=== PATIENT | female | born 1990 | race Caucasian/White ===

== ENCOUNTER 2021-04-12 21:21 | Emergency (ER) | payer BC ==
[~2021-04-12] VITALS: Ht 157.5 cm; Wt 50.0 kg
[2021-04-12 21:30] VITALS: TEMP 97.2
[2021-04-12 22:14] LABS: HEMATOCRIT 41.1 % (37.0-47.0); HEMOGLOBIN 14.3 g/dl (12.5-16.0); MEAN CELL VOLUME 84 fl (80.0-100.0); MEAN CORPUSCULAR HEMOGLOBIN 29 pg (27.0-31.0); MEAN CORPUSCULAR HGB CONC 35 g/dl (33.0-37.0); MEAN PLATELET VOLUME 8.9 fl (7.4-10.4); PLATELET COUNT 415 K/mm3 (130-400); RED BLOOD COUNT 4.88 M/mm3 (4.10-5.30); REDCELL DISTRIBUTION WIDTH-CV 12.1 % (11.5-14.5)
[2021-04-12 22:32] LABS: BILIRUBIN,TOTAL 0.5 mg/dL (0.2-1.2); CREATININE, serum 0.62 mg/dL (0.57-1.11); POTASSIUM 4.1 mmol/L (3.5-4.5); TOTAL PROTEIN 8.3 gm/dL (6.2-8.1)
[2021-04-12 22:39] LABS: BAND 1 % (0-10); LYMPHOCYTE 3 % (20.0-51.0); NEUTROPHILS 93 % (42.0-75.2); PLATELET ESTIMATE NORMAL (NORMAL)
[2021-04-12 23:03] LABS: MUCOUS Present /lpf; PH 5 (5-8); SQUAMOUS EPITHELIAL None Seen /hpf; URINE APPEARANCE Hazy; URINE BACTERIA None Seen /hpf; URINE BILIRUBIN Negative (NEGATIVE); URINE BLOOD Negative (NEGATIVE); URINE COLOR Yellow; URINE GLUCOSE Negative (NEGATIVE); URINE KETONE 2+ (NEGATIVE); URINE LEUKOCYTE ESTERASE Negative (NEGATIVE); URINE NITRATE Negative (NEGATIVE); URINE PROTEIN(semi-quant) 1+ (NEGATIVE); URINE RBC 0-2 /hpf; URINE WBC 0-2 /hpf
[2021-04-12 23:29] LABS: COLLECTION METHOD CLEAN CATCH
[2021-04-13 00:14] VITALS: BP 122/70; PULSE 64
== END 2021-04-13 00:14 | disposition home or self-care (01) ==
LOC: COL.ER 21:21
PROVIDERS: Student in an Organized Health Care Education/Training Program
DX: O20.8 Other hemorrhage in early pregnancy (principal); Z3A.08 8 weeks gestation of pregnancy
CPT/HCPCS: J7030

== ENCOUNTER 2021-10-18 11:56 | Outpatient (CLI) | payer BC ==
[~2021-10-18] VITALS: Ht 157.5 cm; Wt 68.2 kg
[2021-10-18] MEDS ORDERED: ZOFRAN 4MG T4 MG/TAB (12:24)
[2021-10-18] MEDS ORDERED: ASPIRIN 81M81 MG/TA2 PO (12:24)
[2021-10-18 12:30] VITALS: BP 121/78; PULSE 95; TEMP 98.2
[2021-10-18 12:34] LABS: BASO % 0.4 % (0.0-2.0); EOS # 0.1 K/mm3 (0.0-0.7); EOS % 0.5 % (0.0-4.0); GRAN # 8.4 K/mm3 (1.4-6.5); GRAN % 81.1 % (42.2-75.2); HEMOGLOBIN 12.5 g/dl (12.5-16.0); LYMPH # 1.3 K/mm3 (1.2-3.4); LYMPH % 12.6 % (20.0-51.0); MEAN CELL VOLUME 89 fl (80.0-100.0); MEAN CORPUSCULAR HEMOGLOBIN 31 pg (27-31); MEAN CORPUSCULAR HGB CONC 35 g/dl (33.0-37.0); MONO # 0.5 K/mm3 (0.1-0.6); MONO % 4.8 % (1.7-9.3); PLATELET COUNT 249 K/mm3 (130-400); RED BLOOD COUNT 3.98 M/mm3 (4.10-5.30); REDCELL DISTRIBUTION WIDTH-CV 12.1 % (11.5-14.5)
[2021-10-18 12:36] LABS: HEMATOCRIT 35.6 % (37.0-47.0)
[2021-10-18 12:39] LABS: MUCOUS Present (NOT PRESENT); PH 6 (5-8); URINE APPEARANCE Hazy (CLEAR/HAZY); URINE BACTERIA None Seen /hpf (NONE SEEN); URINE BILIRUBIN Negative (NEGATIVE); URINE BLOOD Negative (NEGATIVE); URINE COLOR Yellow (YELLOW); URINE GLUCOSE Negative (NEGATIVE); URINE KETONE Negative (NEGATIVE); URINE LEUKOCYTE ESTERASE Negative (NEGATIVE); URINE NITRATE Negative (NEGATIVE); URINE PROTEIN(semi-quant) Negative (NEGATIVE); URINE RBC 0-2 /hpf (0-2); URINE UROBILINOGEN Negative (NEGATIVE)
[2021-10-18 12:52] LABS: ALBUMIN 2.8 gm/dL (3.5-5.0); BILIRUBIN,TOTAL 0.3 mg/dL (0.2-1.2); CALCIUM 8.2 mg/dL (8.4-10.2); CREATININE, serum 0.59 mg/dL (0.57-1.11); TOTAL PROTEIN 6.3 gm/dL (6.2-8.1)
[2021-10-18 12:57] LABS: COLLECTION METHOD CLEAN CATCH
[2021-10-18 13:00] VITALS: BP 119/72; PULSE 95
[2021-10-18 13:12] VITALS: BP 114/73; PULSE 89
== END 2021-10-18 13:25 | disposition home or self-care (01) ==
LOC: LDRO 11:56 → LDR 12:11 → LDRO 13:25
PROVIDERS: Obstetrics & Gynecology
DX: O16.3 Unspecified maternal hypertension, third trimester (principal); Z3A.34 34 weeks gestation of pregnancy

== ENCOUNTER 2021-11-14 21:03 | Outpatient (CLI) | payer BC ==
[~2021-11-14] VITALS: Ht 160 cm; Wt 71.8 kg
[~2021-11-14 21:03] MED LIST: ASPIRIN 81M81 MG/TA2 PO; ZOFRAN 4MG T4 MG/TAB
--- NOTE | 2021-11-14 21:05 | NUR ---
G2L1 at 38 weeks and 5 days arrives to unit ambulatory with complaint of contractions every 5-10 minutes and small leakage of fluid. Pt reports feeling small amounts of fluid leaking since this afternoon. Pt reports good movement and denies vaginal bleeding. Pt with a history of a 33 week vaginal delivery due to pre eclampsia. Pt denies headaches, blurry vision, or RUQ pain. Clean gown on. Pt oriented to room, bed in low and locked position, call light within reach. US and toco explained and applied. Vitals obtained. Admission assessment started. Amnitrace to perineum position. SVE 1-2/75/-3, bag of water palpated and no fluid out on exam glove. Reviewed plan of care to ambulate with peripad in place to monitor leakage of fluid.
[2021-11-14 21:30] VITALS: BP 134/83; PULSE 85
--- NOTE | 2021-11-14 21:48 | NUR ---
Category 1 FHR tracing obtained. Monitors off, pt up to ambulate.
--- NOTE | 2021-11-14 22:30 | NUR ---
Pt back in bed. Peripad with scant amount of fluid. Pt reports contractions are infrequent and not as strong. Also reports very minimal amount of leaking. ROM plus obtained at this time. SVE unchanged /-3.
--- NOTE | 2021-11-14 23:05 | NUR ---
ROM plus negative. Reviewed discharge plan with patient and spouse, verbalized understanding. Pt seen ambulating off unit with spouse.
== END 2021-11-14 23:25 | disposition home or self-care (01) ==
LOC: LDRO 21:03 → LDR 21:10 → LDRO 23:25
DX: O62.9 Abnormality of forces of labor, unspecified (principal); Z3A.38 38 weeks gestation of pregnancy
CPT/HCPCS: OP

== ENCOUNTER 2021-11-15 03:55 | Inpatient (IN) | payer BC ==
[2021-11-15] VITALS (26 sets, daily range): BP systolic 100–138; BP diastolic 51–76; PULSE 76–110; TEMP 98.2–99.1
[~2021-11-15] VITALS: Ht 160 cm; Wt 69.5 kg
--- NOTE | 2021-11-15 04:05 | NUR ---
G2L1 at 38 weeks and 6 days arrives to unit by wheelchair with complaint of contractions every 5 minutes. Pt was discharged earlier in the shift as a labor check and was dilated 1-2 on discharge. Pt denies any leaking of fluid or vaginal bleeding. Pt denies headaches, blurry vision, or RUQ pain. Pt with a history pre-eclampsia and a 33 week vaginal delivery. Clean gown on. Pt oriented to room, call light within reach, bed in low and locked position. US and toco explained and applied. Vitals obtained. Admission assessment started. SVE 5-6/90/-2, membranes intact.
--- NOTE | 2021-11-15 04:50 | NUR ---
18G IV started in right forearm. Admission labs obtained off IV start. Lactated ringers infusing to gravity. Pen G started per protocol. Consents reviewed and signed with patient and spouse, all questions answered.
[2021-11-15 05:11] LABS: BASO # 0.1 K/mm3 (0.0-0.2); BASO % 0.4 % (0.0-2.0); EOS % 0.2 % (0.0-4.0); GRAN # 10.8 K/mm3 (1.4-6.5); GRAN % 83.3 % (42.2-75.2); HEMOGLOBIN 12.3 g/dl (12.5-16.0); LYMPH # 1.4 K/mm3 (1.2-3.4); LYMPH % 10.9 % (20.0-51.0); MEAN CELL VOLUME 90 fl (80.0-100.0); MEAN CORPUSCULAR HEMOGLOBIN 32 pg (27-31); MEAN CORPUSCULAR HGB CONC 35 g/dl (33.0-37.0); MEAN PLATELET VOLUME 10.1 fl (7.4-10.4); MONO # 0.6 K/mm3 (0.1-0.6); MONO % 4.7 % (1.7-9.3); PLATELET COUNT 254 K/mm3 (130-400); RED BLOOD COUNT 3.91 M/mm3 (4.10-5.30); REDCELL DISTRIBUTION WIDTH-CV 12.1 % (11.5-14.5)
--- NOTE | 2021-11-15 05:16 | NUR ---
0500 - ANASTASIIA, LEATHA at bedside. Epidural procedure, risks, and benefits explained to patient, verbalized understanding. 0505 - Pt positioned to sitting on edge of bed. 0510 - US tracing maternal HR confirmed with pulse ox. 0516 - Test dose by Anastasiia [employer]. Pt denies adverse reactions. 0523 - Pt positioned to left lateral for comfort. Safety precautions reviewed with patient and spouse. Bed in low and locked position, call light within reach. See Anesthesia record.
[2021-11-15 05:20] LABS: HEMATOCRIT 35.3 % (37.0-47.0)
--- NOTE | 2021-11-15 06:15 | NUR ---
0615-Assumed care of patient at this time. Paitent comfortable with epidural. Updated patient on plan of care, all questions answered. 0635-Go to DD, clear dark yellow urine return. SVE -/-2. Alysia care provided. Repositioned WR with peanut ball.
--- NOTE | 2021-11-15 07:00 | NUR ---
0700-Variable FHR decel. Patient calls out with complaint of possible SROM. SVE 7-8/-1 with clear fluid noted. Alysia care provided. Repositioned WL with PB.
--- NOTE | 2021-11-15 07:50 | NUR ---
0750-Nick reports increased pressure and emesis 250ml clear fluid at this time. SVE /0. FHR decel slow to return to baseline. Dr. Costello notified of SVE and reviewed strip see MD notification.
--- NOTE | 2021-11-15 08:48 | NUR ---
0848-Dr. Costello notified of patients deep variable decel and recent prolonged decel, see MD notification. Updated on SVE 9-/0. MD in route to unit now. 0855-Dr. Costello to patient room. SVE by MD complete and ready to start pushing per MD. 0904-Paitent starts pushing with this RN at bedside. Moves vertex well. 09-Dr. Costello back to patient room. Patient set up for delivery and begins pushing with MD at bedside. Continues to move vertex well. 09-Spontaneous delivery of head. Tight nuchal clamped x 2 and cut by Father of . Patient instructed to keep pushing and spontaneously delivers body. Infant immediately taken to mothers abdomen and care assumed by ABRAHAN López. Apgars 8/9/9. 0929-Spontaneous delivery of intact placenta by MD. Fundal massage firm. [place] WNL. EBL 200ml. Pitocin bolus per MD order and protocol. 2nd Degree MLL repaired by MD. Alysia care provided. Updated on plan of care and safety.
[2021-11-16] VITALS: BP 115/77; PULSE 86; TEMP 98.1
[2021-11-16] MEDS ORDERED: MOTRIN 800800 MG/TAB PO (08:56)
[2021-11-16 09:10] VITALS: BP 120/75; PULSE 104; TEMP 98.4
--- NOTE | 2021-11-16 17:00 | NUR ---
1700-Reviewed discharge instructions with patient. Instructed on on need to schedule 6 week visit. 1730-Ambulatory off unit.
== END 2021-11-16 17:30 | disposition home or self-care (01) | DRG 807 ==
LOC: LDRO 03:55 → LDR 04:22 → OB 13:00
PROVIDERS: Obstetrics & Gynecology; ADMIT Obstetrics & Gynecology
PROC: 10E0XZZ Delivery of Products of Conception, External Approach (ICD-10-PCS; principal; 2021-11-15)
PROC: 0KQM0ZZ Repair Perineum Muscle, Open Approach (ICD-10-PCS; 2021-11-15)
DX: O99.824 Streptococcus B carrier state complicating childbirth (principal); Z37.0 Single live birth; O70.1 Second degree perineal laceration during delivery; O69.1XX0 Labor and delivery complicated by cord around neck, with compression, not applicable or unspecified; Z3A.38 38 weeks gestation of pregnancy; O62.9 Abnormality of forces of labor, unspecified
CPT/HCPCS: OP; J2405; J2540; J2590; J7120